=== PATIENT | male | born 1980 | race Asian ===

== ENCOUNTER 2019-05-23 04:12 | Emergency (ER) | payer SELFPAY ==
[~2019-05-23] VITALS: Ht 172.7 cm; Wt 55.8 kg
[2019-05-23 04:18] VITALS: Ht 172.7 cm; Wt 55.8 kg
[2019-05-23 06:35] VITALS: BP 122/78
== END 2019-05-23 06:35 | disposition home or self-care (01) ==
LOC: ED 04:12
DX: N50.89 Other specified disorders of the male genital organs (principal)
CPT/HCPCS: 87491; 87591; Q0092